=== PATIENT | male | born 1975 | race African-American/Black ===

== ENCOUNTER 2019-08-28 20:38 | Emergency (ER) | payer OTHER ==
--- NOTE | 2019-08-28 20:46 | PDOC ---
History of Present Illness - General Stated Complaint: CHEST PAIN Time Seen by Provider: 08/28/19 20:45 - History of Present Illness Initial Comments: 08/28/19 21:47 Patient refused Tylenol became aggressive, threatening staff and eloped form the ER with a steady gait Past History - Past Medical History Allergies/Adverse Reactions: Allergies Allergy/AdvReac Type Severity Reaction Status Date / Time No Known Allergies Allergy Verified 08/28/19 20:53 ED Treatment Course - LABORATORY CBC & Chemistry Diagram: 08/28/19 21:15 08/28/19 21:15 Discharge - Discharge Information Problems reviewed: Yes Clinical Impression/Diagnosis: Chest pain Condition: Stable Disposition: ELOPED - Admission No - Follow up/Referral - Patient Discharge Instructions - Post Discharge Activity
[2019-08-28 20:53] VITALS: BP 140/70; PULSE 80; TEMP 98.3; BMI 31.9
[2019-08-28] MEDS ORDERED: ACETAMINOPHEN 325 MG TABLET (FP) PO ONE (21:14)
[2019-08-28 21:29] LABS: BASO % 0.7 % (0-2.0); EOS % 0.9 % (0-4.5); HEMATOCRIT 34.8 % (35.4-49); HEMOGLOBIN 11.5 GM/dL (11.7-16.9); LYMPH % 40.4 % (8-40); MCH 29.9 pg (25.7-33.7); MCHC 32.9 g/dl (32.0-35.9); MEAN CELL VOLUME 90.7 fl (80-96); MEAN PLT VOLUME 7.9 fl (7.5-11.1); MONO % 8.7 % (3.8-10.2); NEUT % 49.3 % (42.8-82.8); PLATELET COUNT 223 K/MM3 (134-434); RBC 3.84 M/mm3 (4.00-5.60); RDW 13.1 % (11.9-15.9); WHITE BLOOD COUNT 5.1 K/mm3 (4.0-10.0)
--- NOTE | 2019-08-28 21:29 | PDOC ---
Attending Attestation - Resident Resident Name: Vanessa Gray - ED Attending Attestation I have performed the following: I have examined & evaluated the patient, The case was reviewed & discussed with the resident, I agree w/resident's findings & plan - HPI HPI: 08/28/19 21:28 see resident hpi 08/28/19 21:28 - Physicial Exam PE: 08/28/19 21:28 see resident exam - Medical Decision Making 08/28/19 21:28 44-year-old male with intermittent chest pain Patient has a history of mental illness and has multiple hospital wristband's on from previous visits to other facilities EKG shows no acute ST segment elevations Due to risk factors and patient's possible noncompliance will hold for observation serial enzymes
[2019-08-28] MEDS ORDERED: ACETAMINOPHEN 325 MG TABLET (FP) ONE ×2 (21:37→21:40)
[2019-08-28 21:53] LABS: ALBUMIN 3.6 g/dl (3.4-5.0); BILIRUBIN,TOTAL 0.2 mg/dL (0.2-1); BLOOD UREA NITROGEN 8.6 mg/dL (7-18); CALCIUM 8.6 mg/dL (8.5-10.1); CREATININE 0.8 mg/dL (0.55-1.3); POTASSIUM 3.8 mmol/L (3.5-5.1)
[2019-08-28 21:55] LABS: N-TERMINAL BNP 49.2 pg/ml (5-125)
--- NOTE | 2019-08-29 11:28 | EKG ---
Test Reason : Blood Pressure : / mmHG Vent. Rate : 090 BPM Atrial Rate : 090 BPM P-R Int : 142 ms QRS Dur : 092 ms QT Int : 382 ms P-R-T Axes : 062 003 024 degrees QTc Int : 467 ms NORMAL SINUS RHYTHM INCOMPLETE RIGHT BUNDLE BRANCH BLOCK BORDERLINE ECG NO PREVIOUS ECGS AVAILABLE Confirmed by CHARISSA BURTON, NATASHA ([id number]) on 08/29/2019 11:28:35 AM Referred By: Confirmed By:NATASHA CARRINGTON MD
== END 2019-08-28 21:45 | disposition left against medical advice (07) ==
LOC: JER 20:38
DX: R07.9 Chest pain, unspecified (principal); Z86.59 Personal history of other mental and behavioral disorders
CPT/HCPCS: 36415; 80053; 83880; 84484; 85025; 93005; 93010; 99281-25

== ENCOUNTER 2019-09-26 19:34 | Emergency (ER) | payer OTHER ==
--- NOTE | 2019-09-26 20:01 | PDOC ---
Rapid Medical Evaluation Time Seen by Provider: 09/26/19 19:51 Medical Evaluation: Allergies Allergy/AdvReac Type Severity Reaction Status Date / Time No Known Allergies Allergy Verified 08/28/19 20:53 09/26/19 19:55 Pt c/o: requesting refill for psych meds because he has not been on meds x 2 weeks, denies si/hi, pt on brief exam: vss, manic, flighty conversation Pt ordered for: none Pt to proceed to the ED Discharge Disposition - Diagnosis Infected wound - Discharge Dispostion Disposition: HOME - Prescriptions Prescriptions: Cephalexin Monohydrate [Keflex -] 250 mg PO Q8H #21 capsule Sulfamethoxazole/Trimethoprim [Bactrim Ds -] 1 tab PO BID #14 tablet - Referrals - Patient Instructions Printed Discharge Instructions: Skin Wound Additional Instructions: Keep wound clean and dry. Try not to wear shoes that rub against the wound. Take cephalexin and Bactrim as prescribed. It is very important that you continue to follow-up with your psychiatrist for your psychiatric medication refill. Return to the emergency room for any worsening symptoms - Post Discharge Activity
[2019-09-26 20:07] VITALS: BMI 28.1
--- NOTE | 2019-09-26 23:33 | PDOC ---
*Physical Exam - Vital Signs Last Vital Signs Temp Pulse Resp BP Pulse Ox 98.1 F 71 18 117/108 H 98 09/26/19 19:51 09/26/19 19:51 09/26/19 19:51 09/26/19 19:51 09/26/19 19:51 Medical Decision Making - Medical Decision Making 09/26/19 23:33 Patient seen by the advanced practice provider under my direct supervision. Ancillary testing reviewed as necessary. I agree with plan as outlined by the advanced practice provider. Discharge - Discharge Information Problems reviewed: Yes Clinical Impression/Diagnosis: Infected wound Disposition: HOME - Additional Discharge Information Prescriptions: Cephalexin Monohydrate [Keflex -] 250 mg PO Q8H #21 capsule Sulfamethoxazole/Trimethoprim [Bactrim Ds -] 1 tab PO BID #14 tablet - Follow up/Referral - Patient Discharge Instructions Patient Printed Discharge Instructions: Skin Wound Additional Instructions: Keep wound clean and dry. Try not to wear shoes that rub against the wound. Take cephalexin and Bactrim as prescribed. It is very important that you continue to follow-up with your psychiatrist for your psychiatric medication refill. Return to the emergency room for any worsening symptoms - Post Discharge Activity
--- NOTE | 2019-09-26 23:40 | PDOC ---
History of Present Illness - General Chief Complaint: RX Refill Stated Complaint: PSYCHIATRIC Time Seen by Provider: 09/26/19 19:51 History Source: Patient - History of Present Illness Initial Comments: 09/26/19 23:33 44 year old male Complaining of right ankle skin irritation/wound. Patient reports that he was wearing the shoes that was rubbing against his ankle because of friction wound. Denies fever/chills. Patient at this time is now requesting medication refill. Patient reports that he usually goes to [facility] for psychiatric care. Denies suicidal ideation homicidal ideation. Patient is asking for a sandwich Past History - Past Medical History Allergies/Adverse Reactions: Allergies Allergy/AdvReac Type Severity Reaction Status Date / Time No Known Allergies Allergy Verified 08/28/19 20:53 Home Medications: Ambulatory Orders Cephalexin Monohydrate [Keflex -] 250 mg PO Q8H #21 capsule 09/26/19 Sulfamethoxazole/Trimethoprim [Bactrim Ds -] 1 tab PO BID #14 tablet 09/26/19 COPD: No Psychiatric Problems: Yes - Psycho Social/Smoking Cessation Hx Smoking History: Current every day smoker Have you smoked in the past 12 months: Yes Information on smoking cessation initiated: No Hx Alcohol Use: Yes Drug/Substance Use Hx: Yes Review of Systems - Review of Systems Able to Perform ROS?: Yes Is the patient limited Chinese proficient: No Integumentary: Yes: Erythema Psychiatric: No: Anxiety, Depression, Frequent Crying, Stressors, Sleep Pattern Change, Emotional Problems, Mood Swings, Change in Appetite, Other *Physical Exam - Vital Signs Last Vital Signs Temp Pulse Resp BP Pulse Ox 98.1 F 71 18 117/108 H 98 09/26/19 19:51 09/26/19 19:51 09/26/19 19:51 09/26/19 19:51 09/26/19 19:51 - Physical Exam General Appearance: Yes: Appropriately Dressed Extremity: positive: Other (minimal erythema with blistering to right ankle) Integumentary: positive: Normal Color, Dry, Warm Neurologic: positive: Fully Oriented, Alert Medical Decision Making - Medical Decision Making 09/26/19 23:45 wound infection : cephalexin/ bactrim Discharge - Discharge Information Problems reviewed: Yes Clinical Impression/Diagnosis: Infected wound Disposition: HOME - Additional Discharge Information Prescriptions: Cephalexin Monohydrate [Keflex -] 250 mg PO Q8H #21 capsule Sulfamethoxazole/Trimethoprim [Bactrim Ds -] 1 tab PO BID #14 tablet - Follow up/Referral - Patient Discharge Instructions Patient Printed Discharge Instructions: Skin Wound Additional Instructions: Keep wound clean and dry. Try not to wear shoes that rub against the wound. Take cephalexin and Bactrim as prescribed. It is very important that you continue to follow-up with your psychiatrist for your psychiatric medication refill. Return to the emergency room for any worsening symptoms - Post Discharge Activity
[2019-09-27 00:02] VITALS: BP 131/70; PULSE 90; TEMP 97.7
== END 2019-09-27 00:09 | disposition home or self-care (01) ==
LOC: JER 19:34
DX: L08.89 Other specified local infections of the skin and subcutaneous tissue (principal); F99 Mental disorder, not otherwise specified; Z76.0 Encounter for issue of repeat prescription; F17.210 Nicotine dependence, cigarettes, uncomplicated
CPT/HCPCS: 99282-25

== ENCOUNTER 2020-10-26 22:19 | Inpatient (IN) | payer OTHER ==
[2020-10-26 22:27] VITALS: TEMP 98; BMI 37.2
[2020-10-27 00:34] VITALS: PULSE 78
[2020-10-27 00:39] LABS: BASO % 0.8 % (0-2.0); EOS % 3.6 % (0-4.5); HEMATOCRIT 33.9 % (35.4-49); HEMOGLOBIN 11.2 GM/dL (11.7-16.9); LYMPH % 26.9 % (8-40); MCH 29.9 pg (25.7-33.7); MCHC 32.9 g/dl (32.0-35.9); MEAN CELL VOLUME 90.7 fl (80-96); MEAN PLT VOLUME 8.3 fl (7.5-11.1); MONO % 8.2 % (3.8-10.2); NEUT % 60.5 % (42.8-82.8); PLATELET COUNT 190 K/MM3 (134-434); RBC 3.73 M/mm3 (4.00-5.60); RDW 14.1 % (11.9-15.9); WHITE BLOOD COUNT 4.1 K/mm3 (4.0-10.0)
[2020-10-27 01:03] LABS: CHLORIDE 110 mmol/L (98-107); POTASSIUM 3.5 mmol/L (3.5-5.1); SODIUM 145 mmol/L (136-145)
[2020-10-27 01:05] LABS: ALBUMIN 3.3 g/dl (3.4-5.0); ANION GAP 6 MMOL/L (8-16); BLOOD UREA NITROGEN 12.4 mg/dL (7-18); CALCIUM 8.7 mg/dL (8.5-10.1); CO2 29 mmol/L (21-32); GLUCOSE,RANDOM 98 mg/dL (74-106); MAGNESIUM 1.9 mg/dL (1.8-2.4)
[2020-10-27 01:08] LABS: CREATININE 0.5 mg/dL (0.55-1.3); SGOT/AST 25 U/L (15-37); SGPT/ALT 38 U/L (13-61)
[2020-10-27 01:10] LABS: BILIRUBIN,TOTAL 0.3 mg/dL (0.2-1); TOT PROT 6.8 g/dl (6.4-8.2)
[2020-10-27 01:11] LABS: ALK PHOS 52 U/L (45-117)
[2020-10-27 06:25] VITALS: BP 128/71
[2020-10-27] MEDS ORDERED: NICOTINE 7 MG/24 HOURS TOPICAL PATCH TD SCH (10:00)
== END 2020-10-27 08:30 | disposition left against medical advice (07) | DRG 204 ==
LOC: JER 22:19 → JERBED 10-27 04:40
PROVIDERS: ADMIT Internal Medicine; ATTEND Internal Medicine
DX: R55 Syncope and collapse (principal); R07.89 Other chest pain; F31.9 Bipolar disorder, unspecified; Z59.0 Homelessness; F17.210 Nicotine dependence, cigarettes, uncomplicated; F20.9 Schizophrenia, unspecified; E66.9 Obesity, unspecified; Z68.37 Body mass index [BMI] 37.0-37.9, adult; W18.30XA Fall on same level, unspecified, initial encounter; Y93.89 Activity, other specified; Y92.89 Other specified places as the place of occurrence of the external cause; S06.9X9A Unspecified intracranial injury with loss of consciousness of unspecified duration, initial encounter
CPT/HCPCS: 36415; 71045-TC-FY; 80053; 83735; 84484; 85025; 93005; 93010; 99285-25

== ENCOUNTER 2020-12-10 02:43 | Emergency (ER) | payer OTHER ==
[2020-12-10 02:53] VITALS: TEMP 97.6; BMI 35.9
[2020-12-10] MEDS ORDERED: risperiDONE 2 MG TABLET PO ONE (08:44)
[2020-12-10] MEDS ORDERED: BENZTROPINE MESYLATE 2 MG TABLET PO ONE (08:44)
[2020-12-10] MEDS ORDERED: LITHIUM CARBONATE 150 MG CAPSULE PO ONE (08:49)
[2020-12-10 09:33] VITALS: BP 157/86; PULSE 98
== END 2020-12-10 11:33 | disposition home or self-care (01) ==
LOC: JER 02:43
DX: R06.02 Shortness of breath (principal)
CPT/HCPCS: 93005; 93010; 99283-25

== ENCOUNTER 2020-12-16 02:20 | Emergency (ER) | payer OTHER ==
[2020-12-16 02:47] VITALS: BP 131/74; PULSE 92; TEMP 98.4; BMI 37.7
== END 2020-12-16 03:19 | disposition home or self-care (01) ==
LOC: JER 02:20
DX: R07.9 Chest pain, unspecified (principal)
CPT/HCPCS: 93005; 93010; 99283-25

== ENCOUNTER 2020-12-18 21:52 | Emergency (ER) | payer OTHER ==
[2020-12-18 22:24] VITALS: BP 140/85; PULSE 88; TEMP 98.3; BMI 30.4
== END 2020-12-19 02:00 | disposition home or self-care (01) ==
LOC: JER 21:52
DX: Z59.0 Homelessness (principal); Z76.5 Malingerer [conscious simulation]
CPT/HCPCS: 99283-25

== ENCOUNTER 2020-12-20 00:10 | Emergency (ER) | payer OTHER ==
[2020-12-20 00:43] VITALS: BP 139/88; PULSE 77; TEMP 98.9; BMI 30.4
== END 2020-12-20 01:50 | disposition home or self-care (01) ==
LOC: JER 00:10
DX: Z59.0 Homelessness (principal)
CPT/HCPCS: 93005; 93010; 99284-25

== ENCOUNTER 2020-12-24 20:27 | Emergency (ER) | payer OTHER ==
[2020-12-24 20:35] VITALS: TEMP 98.2; BMI 32.8
[2020-12-25 02:32] VITALS: BP 134/82; PULSE 92
== END 2020-12-25 02:33 | disposition home or self-care (01) ==
LOC: JER 20:27
DX: R07.9 Chest pain, unspecified (principal)
CPT/HCPCS: 71046-TC-FY; 93005; 93010; 99284-25

== ENCOUNTER 2020-12-26 19:37 | Emergency (ER) | payer OTHER ==
[2020-12-26 19:49] VITALS: BP 147/85; PULSE 105; TEMP 99; BMI 30.1
== END 2020-12-26 22:01 | disposition left against medical advice (07) ==
LOC: JER 19:37
DX: R07.9 Chest pain, unspecified (principal)
CPT/HCPCS: 99283-25

== ENCOUNTER 2021-01-01 00:19 | Emergency (ER) | payer OTHER ==
[2021-01-01 00:31] VITALS: BP 146/95; PULSE 96; TEMP 98.8; BMI 32.6
[2021-01-01 02:05] LABS: BASO % 0.4 % (0-2.0); EOS % 1.8 % (0-4.5); HEMATOCRIT 35.5 % (35.4-49); HEMOGLOBIN 11.7 GM/dL (11.7-16.9); LYMPH % 14.1 % (8-40); MCH 30.2 pg (25.7-33.7); MEAN CELL VOLUME 91.5 fl (80-96); MONO % 7.3 % (3.8-10.2); NEUT % 76.4 % (42.8-82.8); PLATELET COUNT 229 K/MM3 (134-434); RBC 3.87 M/mm3 (4.00-5.60); RDW 14.8 % (11.9-15.9); WHITE BLOOD COUNT 8.9 K/mm3 (4.0-10.0)
[2021-01-01 02:27] LABS: CHLORIDE 111 mmol/L (98-107); SODIUM 144 mmol/L (136-145)
[2021-01-01 02:30] LABS: CALCIUM 8.4 mg/dL (8.5-10.1)
[2021-01-01 02:31] LABS: ANION GAP 5 MMOL/L (8-16); BLOOD UREA NITROGEN 9.5 mg/dL (7-18); CO2 28 mmol/L (21-32); GLUCOSE,RANDOM 97 mg/dL (74-106)
[2021-01-01 02:33] LABS: CREATININE 0.6 mg/dL (0.55-1.3)
== END 2021-01-01 03:31 | disposition home or self-care (01) ==
LOC: JER 00:19
DX: R07.89 Other chest pain (principal); Z59.0 Homelessness
CPT/HCPCS: 36415; 71045-TC-FY; 80048; 84484; 85025; 93005; 93010; 99285-25

== ENCOUNTER 2021-01-09 04:00 | Emergency (ER) | payer OTHER ==
[2021-01-09 04:15] VITALS: BP 126/94; PULSE 92; TEMP 98.8; BMI 30.1
== END 2021-01-09 06:11 | disposition short-term general hospital (02) ==
LOC: JER 04:00
DX: Z59.0 Homelessness (principal); Z91.14 Patient's other noncompliance with medication regimen
CPT/HCPCS: 99281-25

== ENCOUNTER 2021-01-20 21:23 | Emergency (ER) | payer OTHER ==
[2021-01-20 21:31] VITALS: BP 140/90; PULSE 90; TEMP 98.9; BMI 34.0
== END 2021-01-21 00:49 | disposition home or self-care (01) ==
LOC: JER 21:23 → SUPCPDRO 21:23 → JER 01-21 00:49
DX: T73.0XXA Starvation, initial encounter (principal); Z59.0 Homelessness
CPT/HCPCS: 99281-25

== ENCOUNTER 2021-01-23 09:58 | Emergency (ER) | payer OTHER ==
[2021-01-23 10:02] VITALS: BP 134/86; PULSE 71; TEMP 98.3; BMI 32.8
== END 2021-01-23 11:20 | disposition home or self-care (01) ==
LOC: JER 09:58
DX: T69.029A Immersion foot, unspecified foot, initial encounter (principal)
CPT/HCPCS: 99281-25

== ENCOUNTER 2021-02-19 01:01 | Emergency (ER) | payer OTHER ==
[2021-02-19 01:22] VITALS: BP 147/94; PULSE 90; TEMP 98.8; BMI 29.4
== END 2021-02-19 02:37 | disposition home or self-care (01) ==
LOC: JER 01:01
DX: Z76.5 Malingerer [conscious simulation] (principal)
CPT/HCPCS: 93005; 93010; 99281-25

== ENCOUNTER 2022-08-17 16:51 | Emergency (ER) | payer OTHER ==
[2022-08-17 17:02] VITALS: BP 184/72; PULSE 99; RESP 18; TEMP 97; BMI 33.2
[2022-08-17 18:27] LABS: BASO % 0.7 % (0-2.0); EOS % 0.1 % (0-4.5); HEMOGLOBIN 12.3 GM/dL (11.7-16.9); LYMPH % 21.5 % (8-40); MCH 28.9 pg (25.7-33.7); MCHC 32.5 g/dl (32.0-35.9); MEAN CELL VOLUME 89.1 fl (80-96); MEAN PLT VOLUME 8.5 fl (7.5-11.1); MONO % 6.8 % (3.8-10.2); NEUT % 70.9 % (42.8-82.8); PLATELET COUNT 316 10^3/uL (134-434); RBC 4.27 M/mm3 (4.00-5.60); RDW 15.2 % (11.9-15.9); WHITE BLOOD COUNT 5.9 K/mm3 (4.0-10.0)
[2022-08-17 18:33] LABS: INR 1.03 (0.83-1.09); PROTHROMBIN TIME (PATIENT) 11.8 SEC (9.7-13.0)
[2022-08-17 18:35] LABS: ACTIVATED PTT 32.1 SECONDS (25.2-36.5)
[2022-08-17 18:51] LABS: CALCIUM 9.2 mg/dL (8.5-10.1)
[2022-08-17 18:52] LABS: BLOOD UREA NITROGEN 6.8 mg/dL (7-18)
[2022-08-17 18:55] LABS: CREATININE 0.6 mg/dL (0.55-1.3)
[2022-08-17 18:56] LABS: BILIRUBIN,TOTAL 0.5 mg/dL (0.2-1)
[2022-08-17 18:57] LABS: TOT PROT 7.6 g/dl (6.4-8.2)
[2022-08-17 19:00] LABS: N-TERMINAL BNP 47.6 pg/ml (5-125)
== END 2022-08-17 20:38 | disposition left against medical advice (07) ==
LOC: JER 16:51
DX: R07.9 Chest pain, unspecified (principal)
CPT/HCPCS: 0241U-QW; 36415; 71045-TC-FY; 80053; 83735; 83880; 84484; 85025; 85610; 85730; 93005; 93010; 99285-25

== ENCOUNTER 2022-09-13 10:09 | Emergency (ER) | payer OTHER ==
[2022-09-13 10:27] VITALS: BMI 40.7
[2022-09-13 12:00] LABS: BASO % 0.7 % (0-2.0); EOS % 0.4 % (0-4.5); HEMATOCRIT 35.3 % (35.4-49); HEMOGLOBIN 11.8 GM/dL (11.7-16.9); LYMPH % 21.6 % (8-40); MCHC 33.5 g/dl (32.0-35.9); MEAN CELL VOLUME 89.5 fl (80-96); MEAN PLT VOLUME 7.9 fl (7.5-11.1); NEUT % 70.3 % (42.8-82.8); PLATELET COUNT 260 10^3/uL (134-434); RBC 3.94 M/mm3 (4.00-5.60); RDW 15.1 % (11.9-15.9); WHITE BLOOD COUNT 5.1 K/mm3 (4.0-10.0)
[2022-09-13 12:11] LABS: INR 1.09 (0.83-1.09); PROTHROMBIN TIME (PATIENT) 12.5 SEC (9.7-13.0)
[2022-09-13 12:13] LABS: ACTIVATED PTT 29.1 SECONDS (25.2-36.5)
[2022-09-13 12:22] LABS: ALBUMIN 3.8 g/dl (3.4-5.0); BLOOD UREA NITROGEN 6.9 mg/dL (7-18)
[2022-09-13 12:25] LABS: CREATININE 0.6 mg/dL (0.55-1.3)
[2022-09-13 12:26] LABS: BILIRUBIN,TOTAL 0.4 mg/dL (0.2-1); TOT PROT 7.1 g/dl (6.4-8.2)
[2022-09-13] MEDS ORDERED: POTASSIUM CHLORIDE TABS 20 MEQ TABLET.ER (FP) PO ONE ×2 (12:58→13:03)
[2022-09-13] MEDS ORDERED: ASPIRIN 325 MG TABLET PO ONE (13:07)
[2022-09-13 15:17] VITALS: BP 138/75; PULSE 85; RESP 16; TEMP 97.8
== END 2022-09-13 15:17 | disposition short-term general hospital (02) ==
LOC: JER 10:09
DX: R07.9 Chest pain, unspecified (principal)
CPT/HCPCS: 0241U-QW; 36415; 71045-TC-FY; 80053; 83690; 83735; 84484; 85025; 85610; 85730; 93005; 93010; 99285-25

== ENCOUNTER 2022-09-17 06:53 | Emergency (ER) | payer OTHER ==
[2022-09-17 07:05] VITALS: BP 140/82; PULSE 85; RESP 17; TEMP 98.1; BMI 33.6
[2022-09-17] MEDS ORDERED: ACETAMINOPHEN 500 MG TABLET (FP) PO ONE (07:45)
[2022-09-17] MEDS ORDERED: ACETAMINOPHEN 325 MG TABLET (FP) ONE (07:49)
== END 2022-09-17 09:13 | disposition home or self-care (01) ==
LOC: JERFT 06:53 → JER 06:53 → JERFT 09:13
DX: S16.1XXA Strain of muscle, fascia and tendon at neck level, initial encounter (principal); Y99.9 Unspecified external cause status
CPT/HCPCS: 99283-25

== ENCOUNTER 2022-09-20 19:19 | Emergency (ER) | payer OTHER ==
[2022-09-20 19:35] VITALS: BMI 31.0
[2022-09-20] MEDS ORDERED: BENZTROPINE MESYLATE 1 MG TABLET PO ONE (20:39)
[2022-09-20] MEDS ORDERED: HALOPERIDOL 5 MG TABLET PO ONE (20:39)
[2022-09-20 21:11] LABS: BASO % 0.7 % (0-2.0); EOS % 0.8 % (0-4.5); HEMATOCRIT 34.2 % (35.4-49); HEMOGLOBIN 11.2 GM/dL (11.7-16.9); LYMPH % 24.9 % (8-40); MCH 29.3 pg (25.7-33.7); MCHC 32.7 g/dl (32.0-35.9); MEAN CELL VOLUME 89.4 fl (80-96); MEAN PLT VOLUME 8.7 fl (7.5-11.1); MONO % 7.4 % (3.8-10.2); NEUT % 66.2 % (42.8-82.8); PLATELET COUNT 222 10^3/uL (134-434); RBC 3.82 M/mm3 (4.00-5.60); RDW 14.9 % (11.9-15.9); WHITE BLOOD COUNT 5.8 K/mm3 (4.0-10.0)
[2022-09-20 21:40] LABS: BLOOD UREA NITROGEN 9.2 mg/dL (7-18); CALCIUM 8.6 mg/dL (8.5-10.1)
[2022-09-20 21:41] LABS: ALBUMIN 3.2 g/dl (3.4-5.0)
[2022-09-20 21:44] LABS: CREATININE 0.8 mg/dL (0.55-1.3)
[2022-09-20 21:45] LABS: TOT PROT 6.4 g/dl (6.4-8.2)
[2022-09-20 21:56] LABS: BILIRUBIN,TOTAL 0.2 mg/dL (0.2-1)
[2022-09-21 02:19] VITALS: BP 127/85; PULSE 83; RESP 18; TEMP 97.9
== END 2022-09-21 06:31 | disposition left against medical advice (07) ==
LOC: JERFT 19:19 → JER 19:19
DX: F19.10 Other psychoactive substance abuse, uncomplicated (principal); F20.89 Other schizophrenia; R07.9 Chest pain, unspecified
CPT/HCPCS: 0241U-QW; 36415; 70450-TC; 71046-TC-FY; 80053; 84484; 85025; 93005; 93010; 99285-25

== ENCOUNTER 2023-06-13 23:27 | Emergency (ER) | payer SELFPAY ==
[2023-06-13 23:34] VITALS: BP 141/82; PULSE 88; RESP 18; TEMP 98.4; BMI 38.3
== END 2023-06-14 03:42 | disposition home or self-care (01) ==
LOC: JER 23:27
DX: F19.920 Other psychoactive substance use, unspecified with intoxication, uncomplicated (principal)
CPT/HCPCS: 82962; 99282-25

== ENCOUNTER 2023-07-14 21:35 | Emergency (ER) | payer OTHER ==
[2023-07-14 21:44] VITALS: BP 149/85; PULSE 90; RESP 18; TEMP 98.3; BMI 32.1
[2023-07-15 00:08] LABS: BASO % 0.4 % (0-2.0); EOS % 1.3 % (0-4.5); HEMATOCRIT 33.4 % (35.4-49); HEMOGLOBIN 11.1 GM/dL (11.7-16.9); LYMPH % 21.9 % (8-40); MCH 29.6 pg (25.7-33.7); MCHC 33.4 g/dl (32.0-35.9); MEAN CELL VOLUME 88.8 fl (80-96); MEAN PLT VOLUME 7.5 fl (7.5-11.1); MONO % 13.3 % (3.8-10.2); NEUT % 63.1 % (42.8-82.8); PLATELET COUNT 221 10^3/uL (134-434); RBC 3.76 M/mm3 (4.00-5.60); RDW 16.1 % (11.9-15.9); WHITE BLOOD COUNT 5.1 K/mm3 (4.0-10.0)
[2023-07-15 00:40] LABS: POTASSIUM 3.8 mmol/L (3.5-5.1)
[2023-07-15 00:42] LABS: CALCIUM 8.1 mg/dL (8.5-10.1)
[2023-07-15 00:43] LABS: BLOOD UREA NITROGEN 14.9 mg/dL (7-18)
[2023-07-15 00:46] LABS: CREATININE 0.7 mg/dL (0.55-1.3)
[2023-07-15 00:48] LABS: BILIRUBIN,TOTAL 0.3 mg/dL (0.2-1); TOT PROT 6.1 g/dl (6.4-8.2)
== END 2023-07-15 02:22 | disposition home or self-care (01) ==
LOC: JERFT 21:35
DX: F14.10 Cocaine abuse, uncomplicated (principal); Z59.00 Homelessness unspecified; F99 Mental disorder, not otherwise specified
CPT/HCPCS: 36415; 80053; 84484; 85025; 93005; 93010; 99284-25

== ENCOUNTER 2024-01-13 06:50 | Emergency (ER) | payer SELFPAY ==
[2024-01-13 06:57] VITALS: BP 159/76; PULSE 81; RESP 17; TEMP 98.1; BMI 34.4
[2024-01-13] MEDS ORDERED: risperiDONE 2 MG TABLET PO ONE (08:14)
[2024-01-13] MEDS ORDERED: BENZTROPINE MESYLATE 2 MG TABLET PO ONE (08:16)
== END 2024-01-13 10:03 | disposition left against medical advice (07) ==
LOC: JER 06:50 → JERFT 06:50 → JER 10:03
DX: S60.322A Blister (nonthermal) of left thumb, initial encounter (principal); M79.671 Pain in right foot; M79.672 Pain in left foot; Y93.01 Activity, walking, marching and hiking
CPT/HCPCS: 93005; 93010; 99283-25

== ENCOUNTER 2024-01-14 18:56 | Emergency (ER) | payer SELFPAY ==
[2024-01-14 19:03] VITALS: BP 141/87; PULSE 105; RESP 18; TEMP 98.3; BMI 32.8
== END 2024-01-14 20:41 | disposition home or self-care (01) ==
LOC: JER 18:56
DX: R42 Dizziness and giddiness (principal)
CPT/HCPCS: 93005; 93010; 99283-25

== ENCOUNTER 2024-11-03 02:52 | Emergency (ER) | payer OTHER ==
[2024-11-03 02:57] VITALS: BP 136/86; PULSE 79; RESP 16; TEMP 99.8; BMI 44.2
[2024-11-03] MEDS ORDERED: ACETAMINOPHEN 500 MG TABLET (FP) ONE (03:21)
[2024-11-03] MEDS ORDERED: LIDOCAINE 4% PATCH TP ONE (03:22)
[2024-11-03] MEDS: LIDOCAINE 5% TOPICAL PATCH TP ONE (03:24)
[2024-11-03] MEDS: ACETAMINOPHEN 500 MG TABLET (FP) PO ONE (03:24)
[2024-11-03] MEDS ORDERED: LIDOCAINE PATCH REMOVAL MC ONE (15:00)
== END 2024-11-03 03:49 | disposition home or self-care (01) ==
LOC: JER 02:52
DX: M54.2 Cervicalgia (principal)
CPT/HCPCS: 93005; 93010; 99283-25